=== PATIENT | female | born 1965 | race Caucasian/White ===

== ENCOUNTER → 2024-02-04 11:19 | Outpatient (REF) | payer OTHER, SELFPAY | LOC: HWRAD 11:19 | PROVIDERS: ATTENDING PHYSICIAN Internal Medicine | DX: Z12.31 Encounter for screening mammogram for malignant neoplasm of breast (principal); Z13.820 Encounter for screening for osteoporosis | CPT/HCPCS: 77063; 77067; 77080 ==

== ENCOUNTER → 2024-05-07 09:00 | Outpatient (REF) | payer OTHER, SELFPAY | LOC: PAVMRI 09:00 | PROVIDERS: ATTENDING PHYSICIAN Specialist; FAMILY PHYSICIAN Internal Medicine | DX: M54.12 Radiculopathy, cervical region (principal) | CPT/HCPCS: 72141 ==

== ENCOUNTER 2024-11-14 16:20 | Emergency (ER) | payer OTHER, SELFPAY ==
[2024-11-14 16:27] VITALS: BP 133/80; BMI 24.8
[2024-11-14 16:53] LABS: % Basophils 0.7 % (0-2); % Eosinophils 0.5 % (0-6); % Immature Granulocytes 0.3 % (0-0.5); % Lymphocytes 34.1 % (20.5-51.1); % Monocytes 5.7 % (1.7-9.3); % Neutrophils 58.7 % (42.2-75.2); Absolute Monocytes 0.3 10^3/uL (0.1-0.6); Absolute Neutrophils 3.4 10^3/uL (1.4-6.5); Hematocrit 41.4 % (37.0-47.0); Hemoglobin 13.8 g/dL (12.0-16.0); Mean Corp Hgb Conc. 33.3 g/dL (33.0-37.0); Mean Corpuscular Hgb 28.6 pg (27.0-31.0); Mean Corpuscular Volume 85.7 fL (81.0-99.0); Nucleated Red Blood Cells % 0 %; Platelet Count 280 10^3/uL (130-400); Red Blood Cell Count 4.83 10^6/uL (4.20-5.40); Red Cell Dist. Width 12.1 % (11.5-14.5); White Blood Cell Count 5.8 10^3/uL (4.8-10.8)
[2024-11-14 16:59] LABS: ALT (SGPT) 34 U/L (0-35); AST (SGOT) 26 U/L (14-36); Albumin 4.5 g/dl (3.5-5.0); Alkaline Phosphatase 42 U/L (38-126); Blood Urea Nitrogen 19 mg/dl (7-17); Calcium 9.8 mg/dl (8.4-10.2); Carbon Dioxide 29 mmol/L (22-30); Chloride 107 mmol/L (98-107); Estimated Creatinine Clearance 63 ml/min; Glucose 97 mg/dl (70-99); Lipase 69 U/L (23-300); Potassium 4.4 mmol/L (3.5-5.1); Sodium 142 mmol/L (135-145); Total Bilirubin 0.5 mg/dl (0.2-1.3); eGFR > 60.00
--- NOTE | 2024-11-14 17:58 | ED.GENMED ---
History of Present Illness
General
Chief Complaint: Abdominal Symptoms
Source: patient and significant other
Exam Limitations: none
Time Seen by Provider: 11/14/24 17:09
Nursing documentation reviewed up to this point in time: agreed with
History of Present Illness
History of Present Illness:
Patient is a 59-year-old female with past medical history of fibromyalgia on gabapentin, Wilmer's thyroiditis currently on levothyroxine, ongoing left shoulder pain, who presents to the emergency department accompanied by her from home
for evaluation of GI symptoms that started this morning. Patient reports symptoms started with nausea. She reports that she had 2 episodes of vomiting. Patient reports that the vomitus was nonbloody, non-bilious. Patient reports that she also
had several episodes of watery diarrhea. Patient denies any blood in the stool. Patient reports that in the midst of this, she has been having waves of diffuse lower abdominal pain. Patient reports that the pain is severe when it comes in and
feels sharp. Patient denies urinary symptoms such as dysuria, hematuria. Patient endorses chills but denies fevers, chest pain, shortness of breath. Patient denies any recent known sick contacts, denies any recent travel, denies any recent
antibiotic use. Patient reports that she did try taking Pepto-Bismol at home without improvement in her symptoms. Patient denies similar symptoms in the past. Patient reports that she has been seen by GI in the past, reports that her last
endoscopy/colonoscopy was at least 3 years ago. She reports that they were negative.
Past History
Past History
ED Past Medical History: Fibromyalgia and Other (Wilmer's thyroiditis)
ED Past Surgical History: Other (Exploratory laparoscopy)
Social History
Tobacco: Non-smoker
Alcohol: Occasional
Drug: None
Personal:
Employment: Employed
Review of Systems
Review of Systems
Allergies reviewed?: Yes
All Other Systems: ROS reviewed and negative except as documented in HPI and ROS
Constitutional: Reports chills; Denies fever
EENT: Reports no symptoms
Respiratory: Reports no symptoms
Cardiac: Reports no symptoms
ABD/GI: Reports abdominal pain, nausea, vomiting and diarrhea; Denies bloody stools
: Reports no symptoms
Musculoskeletal: Reports no symptoms
Skin: Reports no symptoms
Neurological: Reports no symptoms
Endocrine: Reports no symptoms
Hematologic/Lymphatic: Reports no symptoms
Psychiatric: Reports no symptoms
Phy Exam
General Physical Exam
General Presentation: well appearing and no apparent distress
General Skin: warm and dry
General Habitus: normal
General Mental: alert
General Hydration: appears well hydrated
ENT Exam
ENT Exam: EOMI, pharynx normal, neck supple and normocephalic
Eye Exam
Eye Exam: PERRL, cornea clear and conjunctiva normal
Cardiovascular Exam
Cardiovascular Exam: regular rate/rhythm, no edema, no murmur and normal peripheral pulses
Pulmonary Exam
Pulmonary Exam: lungs clear, no respiratory distress, no rales, no crackles, no rhonchi, no stridor, no wheezing and no cough
Gastrointestinal Exam
Gastrointestinal Exam: normal bowel sounds, soft, no organomegaly, no pulsatile mass, non distended and tender (RLQ, LLQ, no CVA tenderness bilaterally)
Neurological Exam
Neurological Exam: alert, oriented x3, no motor deficits and speech normal
Musculoskeletal Exam
Musculoskeletal Exam: full ROM and no edema
Skin Exam
Skin Exam: normal color, warm/dry, no rash and no petechia
Psychiatric Exam
Psychiatric Exam: normal mood/affect
Course
Orders/Labs/Results
Orders:
Orders
11/14/24 16:38
Complete Blood Count/With Diff Urgent
Comprehensive Metabolic Panel Urgent
Lipase Urgent
11/14/24 17:57
0.9% Sodium Chloride 1000 ml [Nss] 1,000 ml IV BOLUS
Ketorolac [Toradol] 15 mg IV NOW STA
Ondansetron Injectable [Zofran] 4 mg IV NOW STA
11/14/24 17:58
CT Abd/pelvis W Iv Cont Urgent
Comment:
Reason For Exam: RLQ pain, LLQ pain, vomiting, diarrhea
11/14/24 18:49
Urinalysis Reflex To Culture Urgent
Date Specimen was Collected: 11/14/24
Time Specimen was Collected: 18:46
Urine Microscopic Reflex Cult Urgent
Urine Culture Urgent
LAMAR Source: U
Specimen Description:
Date Specimen was Collected: 11/14/24
Time Specimen was Collected: 18:46
Abnormal Lab Results
11/14/24 11/14/24
16:38 18:49
BUN 19 H mg/dl
(717)
Leukocyte Esterase Rfl 1+ A
(Negative)
Urine Albumin (Reflex) 2+ A
(Neg - Trace)
11/14/24 16:38
11/14/24 16:38
Vital Signs
Initial and Last Documented VS:
Initial Vital Signs
Temp Pulse Resp BP Pulse Ox
97.8 F 84 18 133/80 99
11/14/24 16:27 11/14/24 16:27 11/14/24 16:27 11/14/24 16:27 11/14/24 16:27
Last Documented Vital Signs
Temp Pulse Resp BP Pulse Ox
98.1 F 68 16 113/73 98
11/14/24 18:54 11/14/24 18:54 11/14/24 18:54 11/14/24 20:00 11/14/24 20:30
*Critical Care Note
Total Time (30-74mins, 75-104mins- exclusive of procedures): Not Applicable
Update Note
Update Note:
Patient is a 59-year-old female who presents to the emergency department for evaluation of nausea, vomiting, diarrhea, abdominal cramping that started this morning. Patient denies known sick contacts. On arrival, patient's vital signs are stable,
she is afebrile. On exam, patient is well-appearing, she is in no acute distress, she has a mild amount of RLQ pain and LLQ pain without rebound or guarding. Labs were performed and are non-actionable. CTAP was performed and demonstrates no acute
abnormality to account for the patient's symptoms today. On reevaluation, the patient reports that she feels significantly improved. Patient denies any nausea. She reports that her abdominal pain is resolved. She reports she has been able to
tolerate small sips of water without nausea or vomiting. At this point, I have a high suspicion that the patient is suffering from a viral gastroenteritis and feel that she is safe for discharge to home with instructions on continued supportive
care measures along with strict return precautions. Patient and her are in agreement. Patient and her expressed understanding of the plan and agreed.
ED Attending Note
-
Portions of this chart may have been created with voice recognition software.� Occasional wrong word or��sound alike� substitutions may have occurred due to the inherent limitations of voice recognition software.
Discharge Plan
Departure
Patient Disposition: Home (Routine Discharge)
Date of Disposition: 11/14/24
Time of Disposition: 20:00
Patient with high blood pressure during this ER visit?: No
Condition: Good
Covid-19: Not Applicable
Discharge Problem:
Viral gastroenteritis
Instructions: Viral gastroenteritis in adults, [place] Diet
Prescriptions:
No Action
levothyroxine 88 mcg Tablet
88 mcg PO DAILY
gabapentin 100 mg Tablet
200 mg PO DAILY
Trintellix 20 mg Tablet
20 mg PO DAILY
estradiol-progesterone 1-100 mg Capsule
1 cap PO DAILY
Referrals:
Ewelina Gomez MD [Family Provider] -
Activity Restrictions/Additional Instructions:
You were seen in the emergency department for evaluation of nausea, vomiting, diarrhea, and abdominal cramping. While you were in the emergency department you had blood work which is no dangerous abnormalities. You also had a CT of your abdomen
and pelvis which also showed no dangerous abnormalities. You felt better after receiving medication and are able to drink fluids. We feel it is safe for you to be discharged home. Please continue to drink small sips of fluids frequently. When
you start to feel hungry, please eat a bland diet such as bananas, rice, applesauce, toast. Please return to the emergency department if you develop a fever greater than 100.4 �F, worsening or severe abdominal pain, persistent vomiting, if you are
vomiting up blood, if you have blood in your stool, if you pass out or feel like you are going to pass out, or for any other worsening or concerning symptoms.
Interventions
Interventions:
*Risk Screen - Suicide Last Done: 11/14/24 16:27
*General Assessment Last Done: 11/14/24 16:27
*Neglect/Abuse Screening Last Done: 11/14/24 17:16
ED- Fall Risk Assessment Last Done: 11/14/24 17:16
*ED COVID-19 Vaccine History Last Done: 11/14/24 16:27
*Nursing Disposition Last Done: 11/14/24 20:33
MZ-Svkljo-Hhjifxwuqm Assessment Last Done: 11/14/24 17:16
Discharge Date and Time
Print Language: MOZAMBICAN
[2024-11-14] MEDS: TORADOL 15 MG IV (18:42)
[2024-11-14] MEDS: ZOFRAN 4 MG IV (18:42)
[2024-11-14] MEDS: NSS 1000 IV (18:43)
[2024-11-14 18:45] VITALS: BP 118/70
[2024-11-14 18:54] VITALS: BP 118/70
[2024-11-14 18:58] LABS: Urine Albumin 2+ (Neg - Trace); Urine Bilirubin Negative (Negative); Urine Character Clear (Clear); Urine Color Yellow; Urine Glucose Negative (Negative); Urine Ketone Negative (Negative); Urine Leukocyte 1+ (Negative); Urine Nitrite Negative (Negative); Urine Occult Blood Negative (Negative); Urine Urobilinogen Negative (Neg - 1+); Urine pH 6.5 (5.0-9.0)
[2024-11-14 19:00] VITALS: BP 119/81
[2024-11-14 19:09] LABS: Urine Squamous Cell 0-2 /LPF (Few)
[2024-11-14 19:10] LABS: Urine Red Blood Cell 0-2 /HPF (0-2)
[2024-11-14 20:00] VITALS: BP 113/73
== END 2024-11-14 20:40 | disposition home or self-care (01) ==
LOC: EMR 16:20
PROVIDERS: Emergency Medicine; Physician Assistant Medical; EMERGENCY PHYSICIAN Student in an Organized Health Care Education/Training Program; FAMILY PHYSICIAN Internal Medicine
DX: A08.4 Viral intestinal infection, unspecified (principal); M79.7 Fibromyalgia; E06.3 Autoimmune thyroiditis; Z79.899 Other long term (current) drug therapy
CPT/HCPCS: 96374; 96375; 96361; 99284; 74177; 80053; 81003; 81015; 83690; 85025; 87086; Q9967

== ENCOUNTER 2025-04-14 14:50 | Inpatient (IN) | payer OTHER, SELFPAY ==
[2025-04-14] VITALS (9 sets, daily range): BP systolic 94–120; BP diastolic 60–77; BMI 25.3; BMI 24.6
[2025-04-14 10:50] LABS: Hematocrit 38.1 % (37.0-47.0); Hemoglobin 12.6 g/dL (12.0-16.0); Mean Corp Hgb Conc. 33.1 g/dL (33.0-37.0); Mean Corpuscular Volume 87.4 fL (81.0-99.0); Nucleated Red Blood Cells % 0 %; Platelet Count 261 10^3/uL (130-400); Red Cell Dist. Width 12.5 % (11.5-14.5)
[2025-04-14 11:05] LABS: ALT (SGPT) 62 U/L (0-35); AST (SGOT) 29 U/L (14-36); Albumin 4.1 g/dl (3.5-5.0); Alkaline Phosphatase 24 U/L (38-126); Blood Urea Nitrogen 16 mg/dl (7-17); Calcium 9.2 mg/dl (8.4-10.2); Carbon Dioxide 24 mmol/L (22-30); Chloride 109 mmol/L (98-107); Estimated Creatinine Clearance 72 ml/min; Glucose 85 mg/dl (70-99); Magnesium 2.0 mg/dl (1.6-2.3); Potassium 3.8 mmol/L (3.5-5.1); Sodium 138 mmol/L (135-145); Total Protein 6.3 g/dl (6.3-8.2); eGFR > 60.00
--- NOTE | 2025-04-14 13:12 | ED.GENMED ---
History of Present Illness
General
Chief Complaint: Dizziness
Source: patient
Exam Limitations: none
Time Seen by Provider: 04/14/25 09:56
Nursing documentation reviewed up to this point in time: agreed with
History of Present Illness
History of Present Illness:
Note:
CHIEF COMPLAINT(S)
Dizziness, difficulty walking, facial numbness
HISTORY OF PRESENT ILLNESS
The patient is a 59-year-old female who presented with dizziness and difficulty walking, noting that she stumbled a few times. She reported that the dizziness worsened as the day progressed. Upon going to sleep last night, she experienced a
sensation of the room spinning, which persisted even when she closed her eyes. This morning, the dizziness continued, accompanied by numbness on one side of her face. She described feeling most comfortable when resting on one side. The patient also
experienced nausea but no stomach pain associated with these symptoms.
ADDITIONAL HISTORY OBTAINED FROM SOURCES OTHER THAN THE PATIENT
According to the patient, her daughter had experienced similar symptoms earlier in the week, suggestive of a possible viral etiology, and they reside in the same household with newborns.
MEDICATIONS
Gabapentin, Lexapro
PHYSICAL EXAM
- Nervous System: Neurologic examination revealed cranial nerve 12 intact, no additional neurologic deficits noted.
- Cardiovascular: Heart sounds were normal with S1 and S2, no S3 or S4, and no murmurs.
- Pulmonary: No respiratory distress, lungs were clear bilaterally.
- Abdomen: Soft, non-tender, non-distended; no pulsatile masses or tenderness.
- Extremities: Normal pulses in all extremities.
PROBLEM LIST
Acute Problems:
- Dizziness
- Facial numbness
- Nausea
PLAN
- Conduct laboratory tests to assess electrolytes and other potential causes.
- Arrange for physical therapy evaluation.
- Perform additional testing for vertigo-related conditions.
- Administer a Lyme disease test.
- Monitor for stroke symptoms, although current presentation is not strongly indicative of a stroke.
DIFFERENTIAL DIAGNOSIS
The Differential Diagnosis includes, in no particular order and is not limited to:
1. Benign paroxysmal positional vertigo
2. Vestibular neuritis
3. Labyrinthitis
4. Menieres disease
5. Stroke
6. Transient ischemic attack
7. Multiple sclerosis
8. Lyme disease
9. Migraine-associated vertigo
10. Viral infection
CARE-UPDATE
04/14/25 - 13:27
Patients evaluation by physical therapy suggests a central cause for symptoms, ruling out peripheral causes. Treadmill test (TT) showed no acute findings or laboratory abnormalities. Plan to admit the patient for further diagnostic workup to
investigate central causes.
Disposition:
SUMMARY OF ENCOUNTER
The patient, a 59-year-old female, presented to the emergency department with symptoms of dizziness, difficulty walking, and facial numbness. She reported worsening dizziness throughout the previous day, which persisted into the night, accompanied
by a spinning sensation and nausea. Additional symptoms included numbness on one side of her face. Her daughter had similar symptoms earlier in the week, suggesting a potential viral etiology. The patient is currently taking gabapentin and
escitalopram. Physical examination revealed no significant neurologic deficits beyond the reported symptoms, with normal cardiovascular and pulmonary findings. Given the symptoms and potential central causes, further diagnostic workup is needed.
DISPOSITION
Admit
PLAN
1. Conduct laboratory tests to assess electrolytes and other potential causes.
2. Arrange for physical therapy evaluation to further assess balance and ambulation issues.
3. Perform additional testing for vertigo-related conditions.
4. Administer a Lyme disease test.
5. Monitor for any emerging stroke symptoms.
INDEPENDENT REVIEW OF LABS AND INTERPRETATION OF TESTS
No acute laboratory findings were noted upon initial evaluation, and the treadmill test showed no abnormalities.
MEDICAL DECISION MAKING
-Complexity of Data Reviewed:
Chronic conditions affecting care include potential vertigo and facial numbness. Differential diagnosis considered: benign paroxysmal positional vertigo, vestibular neuritis, labyrinthitis, M�ni�res disease, stroke, transient ischemic attack,
multiple sclerosis, Lyme disease, migraine-associated vertigo, and viral infection.
-Data:
Category 1:
No specific lab tests or imaging were mentioned in this transcript. A general plan has been made for further laboratory diagnostics.
Category 2:
Clinical information was obtained from an independent historian referencing the patients daughter experiencing similar symptoms.
-Risk:
The escalation of care includes hospital admission due to the complexity and risk of the patients presenting complaints and symptoms.
DIAGNOSIS
R42 - Dizziness
R29.6 - Tendency to fall, not elsewhere classified
Past History
Past History
ED Past Medical History: Fibromyalgia and Other (Wilmer's thyroiditis)
ED Past Surgical History: Other (Exploratory laparoscopy)
Social History
Tobacco: Non-smoker
Alcohol: Occasional
Drug: None
Personal:
Employment: Employed
Phy Exam
Physical Exam
Physical Exam:
,
Course
Orders/Labs/Results
Orders:
Orders
04/14/25 09:[address] [CT Head W/o Iv Contrast] Urgent
Comment:
Reason For Exam: vertigo
04/14/25 10:22
Electrocardiogram (*1) Urgent
Reason for Study: Vertigo / Dizzy
EKG- Treatment ONCE
04/14/25 10:23
IV Insert/Care/Rem.- Treatment PRN
Physical Therapy Consult [Pt Eval And Treat] Urgent
Treatment: vestibular evaluation
Activity Level: Ambulate
04/14/25 10:43
Complete Blood Count/With Diff Urgent
Comprehensive Metabolic Panel Urgent
Lyme Progressive Urgent
Magnesium Urgent
Abnormal Lab Results
04/14/25
10:43
WBC 4.6 L 10^3/uL
(4.8-10.8)
Monocytes % 10.5 H %
(1.7-9.3)
Chloride 109 H mmol/L
(98-107)
ALT 62 H U/L
(0-35)
Alkaline Phosphatase 24 L U/L
(38-126)
04/14/25 10:43
04/14/25 10:43
Vital Signs
Initial and Last Documented VS:
Initial Vital Signs
Temp Pulse Resp BP Pulse Ox
98.2 F 71 16 102/77 98
04/14/25 09:15 04/14/25 09:15 04/14/25 09:15 04/14/25 09:15 04/14/25 09:15
Last Documented Vital Signs
Temp Pulse Resp BP Pulse Ox
98.2 F 68 19 117/70 98
04/14/25 09:15 04/14/25 12:15 04/14/25 12:15 04/14/25 11:29 04/14/25 13:13
*Pulse Oximetry
SaO2: 98
Oxygen Mode of Delivery: Room air
Patient hypoxic: no
*Critical Care Note
Total Time (30-74mins, 75-104mins- exclusive of procedures): Not Applicable
ED Attending Note
-
Portions of this chart may have been created with voice recognition software.� Occasional wrong word or��sound alike� substitutions may have occurred due to the inherent limitations of voice recognition software.
Discharge Plan
Departure
Prescriptions:
No Action
levothyroxine 88 mcg Tablet
88 mcg PO DAILY
gabapentin 100 mg Tablet
200 mg PO DAILY
Trintellix 20 mg Tablet
20 mg PO DAILY
estradiol-progesterone 1-100 mg Capsule
1 cap PO DAILY
Referrals:
Ewelina Gomez MD [Family Provider, Internal Medicine]
Interventions
Interventions:
*Risk Screen - Suicide Last Done: 04/14/25 09:16
*General Assessment Last Done: 04/14/25 09:52
*Neglect/Abuse Screening Last Done: 04/14/25 09:16
*ED- Fall Risk Assessment Last Done: 04/14/25 09:52
*ED COVID-19 Vaccine History Last Done: 04/14/25 09:52
ED- Neurological Assessment Last Done: 04/14/25 09:58
ED- Cardiac Assessment Last Done: 04/14/25 09:58
Discharge Date and Time
Print Language: GUATEMALAN
--- NOTE | 2025-04-14 13:51 | HPS.HSE ---
Family Physician
-
Family Physician: Ewelina Gomez
Chief Complaint
-
dizziness
History of Present Illness
Ms. Dee Leong is a 59 yo woman with hx fibromyalgia, Wilmer's thyroiditis presents to the ER complaining of dizziness.
Patient states symptoms started yesterday morning, when she felt like she was off balance. She denies headache. When she went to close her eyes at night she felt like the room spinning. No nausea/vomiting.. She had similar feelings when looked
quickly to one side. This morning she started to have left sided facial fullness and left ear fullness, no pain. No fevers/chills. No recent cough/congestion.
She reports over the last two weeks she has had a sharp, tingling sensation down left leg.
She denies chest pain or shortness of breath. No LE swelling.
Patient was evaluated by PT in the ER. She was found to have resting and direction changing nystagmus and neg HIT. Claudia Hallpike resulted in downbeating nystagmus, she is s/p Lesley on the right side.
Medical History
Past Medical History
Past Medical History: Reports Other (fibromyalgia, Wilmer's thyroiditis )
Past Surgical History: Reports Other
Social History
Tobacco: Former Smoker (quit 12 years ago )
Alcohol: Occasional
Family History
Family History: Not pertinent
Allergies / Home Medications
Allergies reflects when Allergies were last updated in [employer].
Home Medications with original date entered in [employer]
Allergy/Medication List:
Allergies
Allergy/AdvReac Type Severity Reaction Status Date / Time
No Known Allergies Allergy Unverified 04/14/25 09:57
Home Medications
gabapentin 100 mg tablet 200 mg PO HS 11/14/24
levothyroxine 88 mcg tablet 88 mcg PO SUWESA@0700 11/14/24
vortioxetine 20 mg tablet (Trintellix) 20 mg PO HS 11/14/24
cholecalciferol (vitamin D3) 25 mcg (1,000 unit) tablet (Vitamin D3) 25 mcg PO DAILY 04/14/25
docusate sodium 100 mg capsule (Colace) 100 mg PO BIDPRN PRN CONSTIPATION 04/14/25
estradiol 0.025 mg/24 hr semiweekly transdermal patch 0.025 mg topical TUFR 04/14/25
levothyroxine 88 mcg tablet (Synthroid) 132 mcg PO MoTuThFr@0700 04/14/25
progesterone micronized 100 mg capsule 100 mg PO HS 04/14/25
selenium 50 mcg tablet 50 mcg PO DAILY 04/14/25
zinc sulfate 50 mg zinc (220 mg) tablet 50 mg PO DAILY 04/14/25
Review of Systems
-
History Source: Patient
A 12 point ROS was completed and negative except as noted: Yes
Physical Exam
Vital Signs
Vital Signs
Temp Pulse Resp BP Pulse Ox
98.2 F 66 13 117/70 98
04/14/25 09:15 04/14/25 13:30 04/14/25 13:30 04/14/25 11:29 04/14/25 13:13
Physical Exam
General: No Apparent Distress
HEENT: PERRLA and Other (ear canal non-erythematous, mild amount of fluid on left; wax blocking view on right )
Respiratory: Clear; No Wheezes
Cardiac: S1/S2 and Regular Rhythm
GI: Soft and Non Tender
Musculoskeletal: No Edema
Neuro: AO x 3
Psych: Calm
Laboratory Results
-
04/14/25 10:43
04/14/25 10:43
Laboratory Results
Total Bilirubin 0.4 mg/dl (0.2-1.3) 04/14/25 10:43
AST 29 U/L (14-36) 04/14/25 10:43
ALT 62 U/L (0-35) H 04/14/25 10:43
Alkaline Phosphatase 24 U/L (38-126) L 04/14/25 10:43
Data Reviewed
-
Diagnostic Radiology: Report Reviewed by me
Lab Data: Labs Reviewed by me
Impression/Plan
-
Ms. Dee Leong is a 59 yo woman with hx fibromyalgia, Wilmer's thyroiditis presents to the ER complaining of dizziness. PT evaluation concerning for central cause.
Triage VS: T 98.2, P 71, RR 16, BP 102/77, SpO2 98%
LABS: WBC 4.6, Hg 12.6, PLT 261, Na 138, K+ 3.8, Cl 109, Cr 0.7, Glucose [address]
IMPRESSION:
No acute intracranial abnormality.
Loss of Proprioception
Vertigo
-admit to telemetry
-concern for central process given PT eval; sx initially described as loss of proprioception - not typical for BPPV
-MRI/MRA ordered
-Neurology consulted
-neuro checks
-start aspirin now while undergoing work-up
-add on TSH, Vitamin B12
Hx Radiculopathy
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
-patient reports increased sensation LLE over past 2 weeks
Wilmer's Thyroiditis
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
Depression
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
DVT PPx Lovenox subQ
FULL CODE
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
[2025-04-14 15:06] LABS: Lyme Antibody Screen, EIA Negative (Negative)
[2025-04-14 15:43] LABS: TSH 4.27 uIU/ml (0.47-4.68)
[2025-04-14 15:47] LABS: Ferritin 27.9 ng/ml (11.1-264.0)
[2025-04-14 16:02] LABS: Vitamin B12 767 pg/ml (239-931)
[2025-04-14] MEDS: LOW STRENGTH ASPIRIN 162 MG PO (16:23)
[2025-04-14] MEDS: COMPAZINE 10 MG IV (16:23)
[2025-04-14] MEDS: dimenhyDRINATE 50 MG IV (16:36)
[2025-04-14] MEDS: NSS (PRESERVATIVE FREE) 10 ML INJ (16:36)
[2025-04-14 17:01] LABS: COVID-19 Antigen Negative (Negative)
[2025-04-14] MEDS: LOVENOX 40 MG SC (17:20)
[2025-04-14] MEDS: NEURONTIN 200 MG PO (21:00)
[2025-04-15 03:56] VITALS: BP 99/57
[2025-04-15] MEDS: SYNTHROID 132 MCG PO (06:23)
[2025-04-15 07:12] LABS: Hematocrit 38.1 % (37.0-47.0); Hemoglobin 12.7 g/dL (12.0-16.0); Mean Corp Hgb Conc. 33.3 g/dL (33.0-37.0); Mean Corpuscular Volume 86.6 fL (81.0-99.0); Platelet Count 265 10^3/uL (130-400); Red Cell Dist. Width 12.7 % (11.5-14.5)
[2025-04-15 07:52] LABS: Blood Urea Nitrogen 14 mg/dl (7-17); Calcium 9.2 mg/dl (8.4-10.2); Carbon Dioxide 24 mmol/L (22-30); Chloride 109 mmol/L (98-107); Estimated Creatinine Clearance 76 ml/min; Glucose 89 mg/dl (70-99); HDL Cholesterol 61 mg/dl; LDL Cholesterol, Calculated 155 mg/dl; Magnesium 2.1 mg/dl (1.6-2.3); Potassium 4.3 mmol/L (3.5-5.1); Very Low Density Lipoprotein 22 mg/dl (0-30); eGFR > 60.00
[2025-04-15 07:55] VITALS: BP 106/64
[2025-04-15 07:56] LABS: Sodium 136 mmol/L (135-145)
[2025-04-15 07:58] LABS: Glycohemoglobin (HgbA1c) 4.9 % (4.0-5.6)
--- NOTE | 2025-04-15 08:15 | PTOTSP ---
Speech Language Pathology
Pt seen for cognitive-linguistic evaluation via the Boyle Cognitive Assessment (MOCA), version 8.3. Pt with an overall score of 23/30 where normal range is 26-30. Pt with mild cognitive deficits. She stated she has been noting some cognitive
changes at home recent and has talked to her and PCP about these. She reported she has not been sleeping well and is questioning if this is negatively affecting cognition.
Pt would benefit from continued follow up while in hospital to address above deficits and potentially post discharge in outpatient setting. Will determine further after CVA workup.
[2025-04-15] MEDS: LOW STRENGTH ASPIRIN 81 MG PO (09:03)
[2025-04-15] MEDS: TYLENOL 650 MG PO (09:19)
[2025-04-15] MEDS: ATIVAN 1 MG PO (11:13)
[2025-04-15 11:16] VITALS: BP 121/74
[2025-04-15 11:29] VITALS: BP 116/66
[2025-04-15] MEDS: MIRALAX 17 GRAMS PO (12:58)
--- NOTE | 2025-04-15 13:39 | W.PN.UPDATE ---
Update Note
Progress Note Update
Seen and examined. No new complaints. No acute overnight events
Feeling better. Work with physical therapy diet vestibular exercises.
NAD
Scleral Anicteric
MMM
No JVD
CTABL
RRR, S1/S2
Soft, NT, ND, BS+
Warm, Dry
AAOx3, 5/5 motor strength in bilateral upper and lower extremity
Calm
Dizziness
Differential diagnosis which includes posterior circulation CVA versus vestibular migraine versus migraine with aura/complex migraine
Brain MRI pending
Continue prochlorperazine and dimenhydrinate
PT/OT with vestibular resources
PT suspects vestibular migraine based off of left-sided beating nystagmus
History of radiculopathy
Continue gabapentin
Wilmer's thyroiditis
Continue Synthroid
Depression
Continue Trintellix
--- NOTE | 2025-04-15 13:51 | W.PN.HOSP.TC ---
Addendum entered and electronically signed by Lester Lorenzana MD 04/16/25 15:41:
see update note
Original Note:
Today's Communication/Plan
-
Obtain MRI results
Continue to monitor patient
Coordinate with PT
Discharge patient
Assessment / Plan
Assessment / Plan
59-year-old female with past medical history of Wilmer's disease and fibromyalgia presented with dizziness, nausea and difficulty walking, with vertigo and accompanying numbness in one side of the face.
#Vertigo
#Facial numbness
-Central cause for symptoms (loss of proprioception) , ruling out peripheral causes.
-ECG:�
Normal sinus rhythm
Poor R-wave progression ; consider anterior infarct, lead placement, or normal
variant
-Electrolytes all normal
-CBC: normal hgb, wbc 4.7 low
-Urinalysis: unremarkable for infectious process, urine albumin 2+, but normal creatinine function and blood pressure
Lyme disease: negative
sars-cov : negative
Neurology consult: likely migraine with aura, vestibular migraine, Not clear that the patient's leg discomfort is significantly changed when last evaluated in 2019 by EMG study which failed to demonstrate a significant persistent abnormality
MRI brain w/o and with contrast: No acute intracranial abnormality noted.
There are scattered T2/FLAIR white matter hyperintensities which are nonspecific however can be seen with mild chronic small vessel ischemic disease, migraines with aura, less likely demyelinating disease or Lyme's disease.
-Start aspirin 81 mg once a day PO
-Given 1 dose prochlorperazine per neurology
-Given 1 dose dimenhydriate per neurology
-PT follow up as outpatient
-Follow up with primary care physician for migraine monitoring, refer to Neurology as deemed appropriate.
#Radiculopathy:
Continue Gabapentin
#Hashimotos:
TSH: 4.27- Normal, stable
Continue NURSE GYNECOLOGY synthroid
#Depression:
Continue Trintellix
DVT prophh: Lovenox
Anticipated Discharge: 24 - 48 hours
Subjective/Interval History
-
Date of Service: April 15, 2025
Patient noted that she's feeling better. She denies weakness, dizziness, and vertigo. She reports slight headache with a pain score of 4/10, which she attributes from being in bed all day.
Objective Data
-
Labs:
Laboratory Results
04/15/25
06:07
WBC 4.7 L
Hgb 12.7
Hct 38.1
Plt Count 265
Sodium 136
Potassium 4.3
Chloride 109 H
Carbon Dioxide 24
BUN 14
Creatinine 0.7
Glucose 89
Calcium 9.2
Vital Signs:
Vital Signs
Temp Pulse Resp BP Pulse Ox
98.4 F 67 16 116/66 97
04/15/25 11:29 04/15/25 11:29 04/15/25 11:29 04/15/25 11:29 04/15/25 11:29
I&O
04/14/25 04/15/25 04/16/25
06:59 06:59 06:59
Intake Total 480 / 480
Balance 480 / 480
Review of Systems
-
History Source: Patient
Constitutional: Reports Other (Denies fever, fatigue, or weakness )
EENT: Reports No Symptoms Reported
Respiratory: Reports Other (Denies cough and trouble breathing)
Cardiac: Reports Other (Denies chest pain, palpitations, syncope)
Abdomen/GI: Reports Constipated and Other (Denies abdominal pain, nausea, vomiting, diarrhea)
Genitourinary: Reports Other (Denies dysuria, frequency, difficulty voiding)
Musculoskeletal: Reports Other ((+) tingling on feet)
Neuro: Reports Headache (4/10 pain score, tolerable) and Other (Denies weakness, numbness, ataxia, tremors, lightheadedness, seizures)
Endocrine: Reports No Symptoms
Hematologic / Lymphatic: Reports Other (Denies bleeding)
Physical Exam
-
General: Well Developed, Well Nourished, Comfortable and Conversant
HEENT: Normocephalic, Atraumatic and No Ptosis
Respiratory: Clear to Auscultation and Non Labored Respirations
Cardiac: Regular Rhythm and S1/S2
Breast: Deferred by me
GI: Soft, Nontender and Normal Bowel Sounds
Rectal: Deferred by Provider
Genito-urinary: Clear Urine
Musculoskeletal: No Clubbing, No Cyanosis and No Edema
Skin: Warm
Neuro: AO x 3, No Motor Deficits, Central Nerve's Intact, No Sensory Deficits and DTR's Intact & Symmetrica
[2025-04-15 14:48] VITALS: BP 129/70
--- NOTE | 2025-04-15 15:13 | CM ---
canteen manager reviewed patient's chart and met with patient and patient lives with spouse in a 2 story home, is independent with adl's and ambulation, no dme, patient drives.
PCP: Dr Gomez
Pharmacy: [facility] in [place]
--- NOTE | 2025-04-15 20:18 | W.DCSUMMARY ---
Discharge Summary
Discharge Data
Date of Admission: 04/14/25
Date of Discharge: 04/15/25
-
Pending Results: No
Hospital Course
Discharging Physician :
Disposition :
Primary care physician :
Principal Discharge diagnosis :
Chronic Discharge diagnosis :
Hospital Course : 59-year-old female with past medical history of Wilmer's disease and fibromyalgia presented to the Emergency Room with 1 day history of dizziness, vertigo and difficulty walking . This was later accompanied by left sided
facial numbness and feeling of left ear fullness noted the morning of admission. She denies any headache and vomiting. The patient was admitted for further observation. ECG showed sinus rhythm, poor R-wave progression, to consider anterior infarct,
lead placement, normal variant. Patient was started on aspirin 81 mg once a day. Electrolytes and hemoglobin levels all noted to be normal. Lyme's disease and SARS-COV tests were negative. Physical therapy consulted and noted that central cause
likely due to loss of proprioception. Neurology consult also sought, evaluation were done and working diagnosis leaned towards migraine with aura, vestibular migraine. The patient was given 1 dose of prochlorperazine, 1 dose of dimenhydriate to
manage symptoms. Monitoring and appropriate care protocols continued. On hospital day #1, patient noted to have no more symptoms of left facial number and left ear fullness. She denies dizziness and notes that she was able to go to the bathroom
without a spinning sensation or difficulty walking. MRI brain results with and without contrast demonstrated No acute intracranial abnormality. Scattered T2/FLAIR white matter hyperintensities observed which are nonspecific however can be seen with
mild chronic small vessel ischemic disease, migraines with aura, less likely demyelinating disease or Lyme's disease. All other laboratories noted to be stable. MRI results were discussed with the patient. Patient also instructed to have a follow up
with outpatient physical therapy, primary care physician, and neurology.
Important imaging findings : MRI w/ and w/o contrast: No acute intracranial abnormality noted.
There are scattered T2/FLAIR white matter hyperintensities which are nonspecific however can be seen with mild chronic small vessel ischemic disease, migraines with aura, less likely demyelinating disease or Lyme's disease.
Procedure findings :
Discharge Plan
-
Patient Disposition: Home (Routine Discharge)
Discharge Diagnosis/Procedures: Vertigo, Fibromyalgia, Wilmer's Disease
Condition: Fair
Diet: As tolerated
Activity: As tolerated
Driving Restrictions: As prior to admission
Bathing Restrictions: None
Other Services: PT
Referrals:
Ewelina Gomez MD [Family Provider, Internal Medicine]
Additional Discharge Medication Instructions: Follow up with Primary Care Physician within 1-2 weeks
Follow up with Physical Therapy
Prescriptions:
New
aspirin 81 mg Tablet,Chewable
81 mg PO DAILY Qty: 90 1RF
Continued
levothyroxine 88 mcg Tablet
88 mcg PO SUWESA@0700
gabapentin 100 mg Tablet
200 mg PO HS
Trintellix 20 mg Tablet
20 mg PO HS
selenium 50 mcg Tablet
50 mcg PO DAILY
zinc sulfate 50 mg zinc (220 mg) Tablet
50 mg PO DAILY
levothyroxine [Synthroid] 88 mcg Tablet
132 mcg PO MoTuThFr@0700
docusate sodium [Colace] 100 mg Capsule
100 mg PO BIDPRN PRN (Reason: CONSTIPATION)
progesterone micronized 100 mg Capsule
100 mg PO HS
estradiol 0.025 mg/24 hr patch semiweekly
0.025 mg topical TUFR
cholecalciferol (vitamin D3) [Vitamin D3] 25 mcg (1,000 unit) Tablet
25 mcg PO DAILY
Discharge Orders:
Discharge Patient (As Directed); Ordered 04/15/25
Ordered By: Oma Malone
Discharge Date and Time
Discharge Date/Time: 04/15/25 15:31
Print Language: SYRIAC
== END 2025-04-15 15:31 | disposition home or self-care (01) | DRG 103 ==
LOC: 4 EAST ACU 14:50
PROVIDERS: ADMITTING PHYSICIAN Student in an Organized Health Care Education/Training Program; ATTENDING PHYSICIAN Hospitalist; CONSULT PHYSICIAN Psychiatry & Neurology Neurology; EMERGENCY PHYSICIAN Emergency Medicine; FAMILY PHYSICIAN Internal Medicine
DX: G43.109 Migraine with aura, not intractable, without status migrainosus (principal); M79.7 Fibromyalgia; E06.3 Autoimmune thyroiditis; H55.00 Unspecified nystagmus; M54.10 Radiculopathy, site unspecified; F32.A Depression, unspecified; Z87.891 Personal history of nicotine dependence; Z11.52 Encounter for screening for COVID-19
CPT/HCPCS: 70450; 70553; 80048; 80053; 80061; 82607; 82728; 83036; 83735; 84100; 84443; 85025; 85027; 86618; 87811; 92523; 93005; 97112; 97164; 97167; 99285; A9575; J1240

== ENCOUNTER → 2025-05-09 12:27 | Outpatient (REF) | payer OTHER, SELFPAY | LOC: HWRCS 12:27 | PROVIDERS: ATTENDING PHYSICIAN Internal Medicine; REFERRING PHYSICIAN Specialist | DX: R01.1 Cardiac murmur, unspecified (principal); M25.512 Pain in left shoulder | CPT/HCPCS: 73030; 93306 ==

== ENCOUNTER → 2025-05-20 16:33 | Outpatient (REF) | payer OTHER, SELFPAY | LOC: RAD 16:33 | PROVIDERS: ATTENDING PHYSICIAN Registered Nurse Critical Care Medicine; FAMILY PHYSICIAN Internal Medicine | DX: R42 Dizziness and giddiness (principal) | CPT/HCPCS: 70496; 70498; Q9967 ==

== ENCOUNTER → 2025-07-18 09:06 | Outpatient (REF) | payer OTHER, SELFPAY | LOC: PAVMRI 09:06 | PROVIDERS: ATTENDING PHYSICIAN Registered Nurse Critical Care Medicine; FAMILY PHYSICIAN Internal Medicine | DX: R42 Dizziness and giddiness (principal) | CPT/HCPCS: 70553; A9575 ==

== ENCOUNTER → 2025-08-30 19:17 | Outpatient (REF) | payer OTHER, SELFPAY | LOC: MRI 3T 19:17 | PROVIDERS: ATTENDING PHYSICIAN Specialist; FAMILY PHYSICIAN Internal Medicine | DX: M54.12 Radiculopathy, cervical region (principal) | CPT/HCPCS: 72156; A9575 ==